=== PATIENT | female | born 1965 | race Caucasian/White ===

== ENCOUNTER 2017-07-11 05:34 | Inpatient (IN) ==
[2017-07-11 05:51] VITALS: BMI 32.4
[2017-07-11] MEDS ORDERED: METOCLOPRAMIDE 10mg/2ml INJECTION IVP ONE (06:00)
[2017-07-11] MEDS ORDERED: LIDOCAINE 1% (10mg/ml) 2mL INJ PF SDV ID ONE (06:00)
[2017-07-11] MEDS ORDERED: FAMOTIDINE PB 20 MG/50 ML BAG IV ONE (06:00)
[2017-07-11] MEDS ORDERED: ONDANSETRON 4 MG/2 ML INJECTION IVP ONE (06:00)
[2017-07-11] MEDS ORDERED: DEXAMETHASONE 4 MG/ML INJECTION IVP ONE (06:00)
[2017-07-11] MEDS ORDERED: MELOXICAM 15 MG TABLET PO ONE (06:00)
[2017-07-11] MEDS ORDERED: ACETAMINOPHEN 500 MG TABLET PO ONE (06:00)
[2017-07-11] MEDS ORDERED: TRANEXAMIC ACID 1,000 MG in NS 100 ML IV ONE ×2 (06:00→07:00)
[2017-07-11] MEDS: LR 1,000 ML IV SCH ×2 (07:14→09:10)
[2017-07-11] MEDS: NOZIN NASAL SWAB NAS SCH ×6 (07:24→21:07)
[2017-07-11] MEDS ORDERED: MIDAZOLAM 2mg/2ml INJECTION IVP ONE (07:25)
--- NOTE | 2017-07-11 07:25 | Anesthesia Preoperative Report ---
Anesthesia Preoperative Record - Date and Time Date: 07/11/17 Preoperative Diagnosis: Rt KIYA M16.11 NPO Since Date: 07/10/17 NPO Since Time: 17:30 Allergies/Adverse Reactions: Allergies Allergy/AdvReac Type Severity Reaction Status Date / Time No Known Allergies Allergy Verified 07/11/17 06:49 - Vital Signs Vital Signs: Temperature 97.9 F 07/11/17 05:50 Pulse Rate 65 07/11/17 06:55 Respiratory Rate 14 07/11/17 05:50 Blood Pressure 150/80 H 07/11/17 06:55 Pulse Oximetry 99 07/11/17 05:50 Height and Weight: Height 1.65 m Weight 88.4 kg Body Mass Index 32.4 - Medications Inpatient Medications: Current Medications Epinephrine HCl 0.25 mg/Bupivacaine HCl 30 ml/Ketorolac Tromethamine 60 mg/ Sodium Chloride 62.25 mls @ 0 mls/hr OPSITE INTRAOP ONE; Per Protocol PRN Reason: Protocol Stop: 07/11/17 08:01 Lactated Ringer's (Lactated Ringers) 1,000 mls @ 50 mls/hr IV .Q20H JERROD Last Admin: 07/11/17 07:14 Dose: 50 mls/hr Isopropyl Alcohol (Nozin Nasal Swab) 1 each VALE Q1M JERROD Stop: 07/11/17 08:48 Sodium Chloride (Iv Flush) 10 - 80 ml IV PRN PRN PRN Reason: [place] Home Medications: Home Medications Medication Instructions Recorded Confirmed Type Lexapro (escitalopram) 10 mg tablet 10 mg PO DAILY 06/01/17 07/11/17 History Acetaminophen [Tylenol] 1,000 mg PO Q5H PRN 07/03/17 07/11/17 History Is Patient on Beta [place]?: No - Medical History Respiratory: DENIES: Sleep Apnea Cardiovascular: Reports: Hypertension, High Cholesterol, Other (tachycardia) Gastrointestional: Reports: Morbid Obesity Neuro/Musculoskeletal: Reports: HX.MS.OSAR, Depression - Surgical History Reproductive Surgery/Treatment: Reports: Oophorectomy (patient states at age 16/ unsure of which ovary), Other (Expl laparotomy w/ exc of ovarian dermoid cyst) Anesthesia Reactions: None Hx Family Anesthesia Reaction: No History of Motion Sickness: No - Social History Smoking Status: Never smoker Hx Chewing Tobacco Use: No Second Hand Exposure: No Substance Use Type: does not use Alcohol Intake Frequency: does not drink - Pertinent Findings Laboratory: CBC and BMP 07/11/17 06:01 BMP 07/11/17 06:01 Sodium 144 Potassium 3.6 Chloride 104 Carbon Dioxide 26 BUN 14.0 Creatinine 0.7 Glucose 108 Calcium 10.8 H EKG: Sinus Rhythm - Physical Exam Respiratory Exam: Present: lungs clear, bilateral breath sounds equal Cardiovascular Exam: Present: regular rate and rhythm - Airway Assessment Mallampati Score: I TMD: 3 Fingerbreadths Neck Extension: good Overall Assessment: no airway concerns - ASA ASA Score: 2 - Plan Anesthesia: General Inhalation Gases, Neuroaxial Regional/Trunk Block: Spinal - Discussion Discussion: Discussed risks/options/alternatives of anesthesia and questions answered. Patient consents. Nursing pain assessment noted. Present for Discussion: family member Attestation Statement: Prior to the delivery of any anesthetic medication, I examined the patient, developed the plan, obtained the patient's consent and discussed the risk and benefits of the procedure with the patient/guardian. - Additional Information Seen by Anesthesia: Yes
[2017-07-11] MEDS ORDERED: CEFAZOLIN 1 G INJECTION IVP ONE (07:32)
[2017-07-11] MEDS ORDERED: MIDAZOLAM 2mg/2ml INJECTION ONE (07:35)
[2017-07-11] MEDS ORDERED: FentaNYL 100 MCG/2 ML INJECTION ONE (07:35)
[2017-07-11] MEDS ORDERED: PROPOFOL 500 MG/50 ML VIAL ONE ×2 (07:36→09:12)
[2017-07-11] MEDS ORDERED: EPINEPHrine PF 0.25 MG, BUPIVACAINE 0.25% PF 30 ML, KETOROLAC INJ 60 MG in NS 30 ML OPSITE ONE (08:00)
[2017-07-11] MEDS ORDERED: VANCOMYCIN 1,000 MG INJECTION ONE (08:05)
[2017-07-11] MEDS ORDERED: SALINE FLUSH 10ml SYRINGE IV PRN (08:33)
[2017-07-11] MEDS ORDERED: KETAMINE 500 MG/10 ML INJECTION ONE (08:47)
[2017-07-11] MEDS ORDERED: VANCOMYCIN 1,000 MG INJECTION IAR ONE (09:02)
[2017-07-11] MEDS ORDERED: EPHEDRINE 50mg/ml INJECTION ONE (09:07)
[2017-07-11] MEDS ORDERED: FentaNYL 100 MCG/2 ML INJECTION IVP PRN (09:58)
[2017-07-11] MEDS ORDERED: ONDANSETRON 4 MG/2 ML INJECTION IVP PRN ×2 (09:58→11:35)
--- NOTE | 2017-07-11 10:20 | Operative Note ---
- Procedure Preoperative Diagnosis: Right hip primary degenerative joint disease Postoperative Diagnosis: Same as preoperative diagnosis. Surgeon: Taras Stephens MD Guest Request Runner: Rommel Maldonado Complications: None. Anesthesia: Spinal. Estimated Blood Loss: See Anesthesia Record. Fluids: Please see Anesthesia Record. Description of Procedure: Mrs. Michael and her right hip were identified and marked in the preoperative holding area. She was brought back to the operating suite and spinal anesthetic was administered. She was then placed in a lateral decubitus position with her right hip up. The right lower extremity was prepped and draped in my normal sterile fashion. Timeout was performed. The Bringg robotic arm was used to assist with the surgery. She was significantly short according to the preoperative CT as well as her clinical feel at the knee. A pelvic array was placed into the iliac crest through three small incisions. A direct superior approach was utilized. An approximately 15 cm incision was made in the skin and dissection carried down to the muscle fascia which was then split in line with skin incision. The short external rotators were identified and tagged and detached. A capsulotomy was performed and the hip dislocated. A femoral neck osteotomy was performed at the pre-templated level measuring down from the femoral head 46mm. The head was removed and acetabulum exposed. Labrum was removed. The acetabulum was then registered with the robot. She had large osteophytes both anteriorly and superiorly and inferiorly which were removed. The robotic arm was then used to ream with a 51 reamer. The robot then was again used to place a 52 Trident cup in 40 of tilt and 26 of anteversion. A liner was then placed. The proximal femur was exposed and prepared with a cookie cutter followed by reaming and broaching to a size 3. We trialed with a +2.5 head. After thorough irrigation a final Accolade 2 size 3 stem with 127 neck was placed. Leg length and offset were checked with the robot. She started 15 mm short and we got back to within 4 mm. She was very stable throughout range of motion. A final +5 36 mm ceramic head was placed and the hip reduced. Betadine solution was used to irrigate throughout the case. It was followed by normal saline irrigation. Joint cocktail was injected throughout soft tissue. The capsulotomy was repaired with Ethibond. Short external rotators were also repaired with Ethibond. 1 g of vancomycin powder was placed into the wound. The muscle fascia was then repaired with #1 Vicryl. I then left my legal assistant to close the subcutaneous tissue with 2-0 Vicryl followed by running 4-0 Monocryl skin followed by Dermabond and a sterile dressing. The patient with any placed back into supine position and taken to recovery room in the care of anesthesia.
--- NOTE | 2017-07-11 11:26 | Anesthesia Postoperative Note ---
- Date and Time Date: 07/11/17 Time: 11:24 - Status Patient Participated in Evaluation: Patient Participated in Person Vital Signs: Temperature 97.1 F 07/11/17 10:46 Pulse Rate 72 07/11/17 10:55 Respiratory Rate 17 07/11/17 10:55 Blood Pressure 109/63 07/11/17 10:55 Pulse Oximetry 100 07/11/17 10:55 Respiratory Function: Airway Patent, Regular Respirations Cardiovascular Function: Regular Pulse Mental Status: Alert and Oriented Pain Intensity: 0 Hydration: IV Infusing Complications During Recover: None Apparent Post Anesthesia Care Notes: moves feet - Follow-Up Instructions Instructions: Per Surgeon
[2017-07-11] MEDS ORDERED: NOZIN NASAL SWAB NAS ONE (11:35)
[2017-07-11] MEDS ORDERED: LORazepam 1 MG TABLET PO PRN (11:35)
[2017-07-11] MEDS ORDERED: DiphenhydrAMINE 50 MG/ML INJECTION IVP PRN (11:35)
[2017-07-11] MEDS ORDERED: DiphenhydrAMINE 25 MG CAPSULE PO PRN (11:35)
--- NOTE | 2017-07-11 12:10 | XRay Report ---
Indication: postoperative image PROCEDURE: XR pelvis w/ 1 view RT hip: Encounter: Initial Comparison: May 31, 2017 Findings: Postoperative changes of right total hip replacement are seen. The lateral screw of the acetabular component is at the lateral margin of the bone. There is expected postoperative subcutaneous gas. No evidence of hardware failure or acute fracture. No retained radiopaque surgical instruments or sponges seen. Impression: New right total hip prosthesis without evidence of immediate complication. .
[2017-07-11] MEDS: Oxycodone *IR* 5 MG TABLET PO PRN ×4 (12:18→23:37)
[2017-07-11] MEDS: ACETAMINOPHEN 325 MG TABLET PO SCH ×3 (12:18→20:14)
[2017-07-11] MEDS: NS 1,000 ML IV SCH ×2 (12:19→23:33)
[2017-07-11] MEDS: CEFAZOLIN 2 G in NS 50 ML IV SCH ×2 (17:06→23:33)
[2017-07-11] MEDS: DOCUSATE SODIUM 100 MG CAPSULE PO SCH (20:15)
[2017-07-11] MEDS: NAPROXEN 220 MG TABLET PO SCH (20:15)
[2017-07-11] MEDS: ASPIRIN *EC* 81 MG TABLET PO SCH (20:15)
[2017-07-11] MEDS ORDERED: SENNOSIDES 8.6 MG TABLET PO SCH (21:00)
[2017-07-12 04:16] VITALS: RESP 16
[2017-07-12] MEDS: NOZIN NASAL SWAB NAS SCH (05:42)
[2017-07-12 07:51] VITALS: PULSE 70
[2017-07-12] MEDS: ASPIRIN *EC* 81 MG TABLET PO SCH (08:39)
[2017-07-12] MEDS: NAPROXEN 220 MG TABLET PO SCH (08:39)
[2017-07-12] MEDS: ACETAMINOPHEN 325 MG TABLET PO SCH ×2 (08:39→13:09)
[2017-07-12] MEDS: DOCUSATE SODIUM 100 MG CAPSULE PO SCH (08:42)
--- NOTE | 2017-07-12 08:49 | Orthopedic Progress Note ---
Date: Date: 07/12/17 Time: 845 Subjective/Severity of Illness: Doing great. She has been up with good tolerance. Pain is improved from pre op but feels like her "butt is in a vice". No CP cough or SOA. Expects discharge later today. Labs stable, dressing dry. N/V intact. Orthopedic Objective PO Vital signs: Temperature 98.2 F 07/12/17 07:50 Pulse Rate 70 07/12/17 07:50 Respiratory Rate 16 07/12/17 07:50 Blood Pressure 107/65 07/12/17 07:50 Pulse Oximetry 98 07/12/17 07:50 Height and Weight: Height 5 ft 5 in Weight 194 lb 14.218 oz Body Mass Index 32.4 - Constitutional General Appearance: Present: alert, cooperative, no acute distress - Respiratory Exam Present: non-labored - Cardiovascular Exam Present: pedal pulses intact - Extremities Exam Extremities: Present: pulses intact. Absent: calf tenderness - Surgical Site Incision: Mepilex dressing intact, dressing intact, no drainage - Integumentary Exam Present: pink, warm, dry - Neurological Exam Present: no deficits - Psychiatric Exam Present: alert, normal affect - Labs Result Diagrams: 07/12/17 04:52 07/12/17 04:52 Abnormal lab results 07/12/17 07/12/17 Range/Units 04:52 04:52 Hgb 9.3 L (12-16) GM/DL Hct 29.2 L (36-46) % Creatinine 0.6 L (0.7-1.2) MG/DL Glucose 117 H (65-110) MG/DL H & H 07/12/17 Range/Units 04:52 Hgb 9.3 L (12-16) GM/DL Hct 29.2 L (36-46) % Orthopedic Assessment and Plan (1) Primary osteoarthritis of right hip Status: Acute Assessment and Plan: Current anti-coagulation protocol for VTE prophylaxis. SCD's. PT/OT services to improve independent function. Discharge Planning per Case Management. - Anticoagulation Therapy Anticoagulation: ASA 81 mg PO BID x6 weeks Hospital Course Summary Disclaimer: The visit summary below is not to be considered part of the above Progress Note.
--- NOTE | 2017-07-12 08:57 | Discharge Summary ---
Orthopedic Discharge Info Date of admission: 07/11/17 05:34 Anticipated date of discharge: 07/12/17 Primary care physician: Jane Eugene APRN Attending Physician: Tim Stephens MD Consults: 07/11/17 05:49 Consult to Anesthesiology [CONS] Routine Reason For Exam: Preoperative Assessment 07/11/17 11:35 Case Management Consult [CONS] Routine Reason For Exam: Discharge Planning DME-Walker [CONS] Routine Height: 5 ft 5 in Weight: 194 lb 14.218 oz Total Joint Outpatient Therapy [CONS] Routine Comment: Remove dressing in 2 weeks - Discharge Diagnosis (1) Primary osteoarthritis of right hip Status: Acute - Procedures Procedures: R KIYA 07/11/17 - Laboratory Result Diagrams: 07/12/17 04:52 07/12/17 04:52 Laboratory: Abnormal lab results 07/12/17 07/12/17 Range/Units 04:52 04:52 Hgb 9.3 L (12-16) GM/DL Hct 29.2 L (36-46) % Creatinine 0.6 L (0.7-1.2) MG/DL Glucose 117 H (65-110) MG/DL H & H 07/12/17 Range/Units 04:52 Hgb 9.3 L (12-16) GM/DL Hct 29.2 L (36-46) % Orthopedic Discharge HPI - HPI Comments This patient was admitted for elective surgical tx of end stage degenerative joint disease that failed to respond to conservative treatment. Further details of this is found in the admission H&P. Orthopedic Hospital Course Hospital course: 07/12/17 08:54 After appropriate preoperative clearance and signing of operative consent, the patient was given IV antibiotics, according to orthopedic protocol. The patient was taken to the operating room and underwent elective right total hip arthroplasty. Following surgery, antibiotics were discontinued less than 24 hours according to joint protocol. Aspirin was initiated and SCDs added for DVT prevention. The dressing was clean, dry, and intact. Pain control was obtained via multimodal approach. Bowel motivation addressed with scheduled and PRN medications. Early mobilization was initiated through PT services. Discharge arrangements made by a collaborative effort between the patient and Case Management. Follow-up is scheduled in 2-3 weeks. Discharge instructions given by orthopedic providers and nursing staff at discharge. Discharge condition was good. Care extended to > 2 midnight stays?: No Discharge Plan - Med Rec/Dispo Referrals/Follow Up: Tim Stephens MD [Physician] - 08/02/17 9:45 am [place] Instructions: [facility] Postop Instructions Additional Instructions: PHYSICAL THERAPY AT [facility] ON JULY 13 AT 2: 40PM. CHECK IN AT 2:20. TAKE YOUR INSURANCE CARD WITH YOU. P#[phone]. Prescriptions: New Aspirin *EC* [Ecotrin] 81 mg PO BID tab Docusate Sodium [Colace] 100 mg PO BID cap Milk of Magnesia [Mom] 30 ml PO DAILY udc Naproxen [Aleve] 440 mg PO BID tab Oxycodone *IR* [Roxicodone *Ir*] 5 - 15 mg PO Q3H PRN #60 tab PRN Reason: Breakthrough Pain PEG 3350 17gm PACKET [Miralax] 17 gm PO DAILY packet Acetaminophen [Tylenol] 650 mg PO QID tab Continue Zestoretic (lisinopril 20 mg-hydrochlorothiazide 12.5 mg) tablet 1 tab PO DAILY #30 tab Zocor (simvastatin) 20 mg tablet 20 mg PO QAM #90 tab Lexapro (escitalopram) 10 mg tablet 10 mg PO DAILY tenormin (atenolol) 25 mg tablet 25 mg PO DAILY #30 tab ergocalciferol (vitamin D2) 50,000 unit capsule 50,000 unit PO DAILY #2 cap Discontinued Acetaminophen [Tylenol] 1,000 mg PO Q5H PRN PRN Reason: Pain - Disposition 01 Discharged Home, Self-Care - Dismissal Complete Discharge Instructions are:: Complete, Incomplete
[2017-07-12] MEDS ORDERED: SIMVASTATIN 20 MG TABLET PO SCH (09:00)
[2017-07-12] MEDS ORDERED: LISINOPRIL/HCTZ 20/12.5 MG TABLET PO SCH (09:00)
[2017-07-12] MEDS ORDERED: POLYETHYL GLYCOL 3350 17gm PACKET PO SCH (09:00)
[2017-07-12] MEDS ORDERED: ESCITALOPRAM 10 MG TABLET PO SCH (09:00)
[2017-07-12] MEDS ORDERED: ATENOLOL 25 MG TABLET PO SCH (09:00)
[2017-07-12] MEDS: Oxycodone *IR* 5 MG TABLET PO PRN (10:37)
[2017-07-12] MEDS ORDERED: SENNOSIDES 8.6 MG TABLET PO PRN (10:52)
[2017-07-12 12:31] VITALS: BP 110/56; TEMP 98.7; O2SAT 100
[2017-07-13] MEDS ORDERED: BISACODYL 10 MG SUPPOSITORY RECTALLY SCH (20:00)
== END 2017-07-12 13:25 | disposition home or self-care (01) | DRG 470 ==
LOC: NMC.PERIOP 05:34 → SRG 11:23
PROVIDERS: ADMIT Orthopaedic Surgery; ATTEND Orthopaedic Surgery